=== PATIENT | male | born 1980 | race Caucasian/White ===

== ENCOUNTER 2023-02-01 08:07 | Outpatient (CLI) | payer OTHER, SELFPAY | END 2023-02-01 08:08 | disposition home or self-care (01) | LOC: MRI 08:12 | PROVIDERS: Visit Provider Physician Assistant | DX: C71.9 Malignant neoplasm of brain, unspecified (principal) | CPT/HCPCS: 70553; A9575 ==

== ENCOUNTER 2023-05-03 11:23 | Outpatient (CLI) | payer OTHER, SELFPAY ==
[2023-05-03 11:40] LABS: Basophils Percent Auto 0.2 % (0.0-3.0); Eosinophils Percent Auto 1.7 % (0.0-7.0); Hematocrit 43.8 % (37.0-53.0); Hemoglobin* 14.5 gm/dL (13.5-17.5); Immature Granulocytes Pct Auto 0.2 %; Lymphocytes Percent Auto 29.7 % (20-44); Mean Corpuscular HGB Conc 33 gm/dL (32-36); Mean Corpuscular Hemoglobin 32 pg (26-34); Mean Corpuscular Volume 96 fL (80-100); Monocytes Percent Auto 10.7 % (0.0-11.0); Neutrophils Percent Auto 57.5 % (42.0-72.0); Platelet Count* 167 K/uL (140-440); RDW Coefficient of Variation % 13.1 % (11.5-15.5); Red Blood Count 4.56 m/uL (4.30-5.90); White Blood Count* 4.21 K/uL (4.50-11.00)
[2023-05-03 11:41] LABS: Slide Review Reflex No
== END 2023-05-03 11:24 | disposition home or self-care (01) ==
LOC: LAB 11:25
DX: C71.9 Malignant neoplasm of brain, unspecified (principal); Z79.899 Other long term (current) drug therapy
CPT/HCPCS: 36415; 85025